=== PATIENT | female | born 1995 | race Caucasian/White ===

== ENCOUNTER 2023-03-17 15:19 | Emergency (ER) | payer SELFPAY ==
[~2023-03-17] VITALS: Ht 167.6 cm; Wt 63.0 kg
[2023-03-17 15:22] VITALS: BP 0/0
== END 2023-03-17 16:00 | disposition left against medical advice (07) ==
LOC: ER 15:19
DX: R10.9 Unspecified abdominal pain (principal)
CPT/HCPCS: 99281